=== PATIENT | male | born 1950 | race Caucasian/White ===

== ENCOUNTER 2019-09-13 11:16 | Emergency (ER) | payer OTHER ==
[2019-09-13 11:27] VITALS: BP 129/78
--- NOTE | 2019-09-13 11:56 | UC ---
Ear Complaint HPI - HPI Summary HPI Summary: 69 y/o male presents to the urgent care c/o RT ear pain and swelling for the past 5 days. Pt reports he wears hearing aids and feels was slightly difficult to removed 2 days ago due to probably swelling. Pain is 4/10 at times associated w/ decrease hearing. Pt denies URI, fever, dizziness, SOB, chest pain , ZUÑIGA,abdominal pain, N/V/D. He has not taken any medication to alleviate symptoms. - History of Current Complaint Chief Complaint: UCEar Stated Complaint: EAR ACHE Time Seen by Provider: 09/13/19 11:47 Hx Obtained From: Patient Onset/Duration: Gradual Onset, Lasting Days - 5 days, Still Present, Worse Since - last night Severity Initially: Mild Severity Currently: Mild Pain Intensity: 4 Pain Scale Used: 0-10 Numeric Aggravating Factors: Nothing Alleviating Factors: Nothing Associated Signs/Symptoms: Positive: Hearing Loss - RT ear - Allergies/Home Medications Allergies/Adverse Reactions: Allergies Allergy/AdvReac Type Severity Reaction Status Date / Time No Known Allergies Allergy Verified 09/13/19 11:27 PMH/Surg Hx/FS Hx/Imm Hx Previously Healthy: Yes Endocrine History: Dyslipidemia Cardiovascular History: Cardiac Disease, Hypertension - Surgical History Surgical History: Yes Surgery Procedure, Year, and Place: SKIN CANCER REMOVED FROM FACE 10 YEARS AGO. LEFT TOTAL HIP REPLACEMENT 2011 - Family History Known Family History: Positive: Cardiac Disease, Hypertension - Social History Occupation: Retired Lives: With Family Alcohol Use: Occasionally Alcohol Amount: BEER 2 X WEEK Substance Use Type: None Smoking Status (MU): Former Smoker When Did the Patient Quit Smoking/Using Tobacco: 43 YEARS AGO Review of Systems All Other Systems Reviewed And Are Negative: Yes Constitutional: Positive: Negative Skin: Positive: Negative Eyes: Positive: Negative ENT: Positive: Negative, Ear Ache - Rt ear pain ans swelling. Negative: Sore Throat, Nasal Discharge Respiratory: Positive: Negative Cardiovascular: Positive: Negative Gastrointestinal: Positive: Negative Genitourinary: Positive: Negative Motor: Positive: Negative Neurovascular: Positive: Negative Musculoskeletal: Positive: Negative Neurological: Positive: Negative Psychological: Positive: Negative Is Patient Immunocompromised?: No Physical Exam - Summary Physical Exam Summary: Vital signs: reviewed General: well developed, well nourished male sitting in the examining table w/o any apparent distress Skin: [place], warm and dry, no evidence of atopic dermatitis, psoriasis, seborrhea. HEENT: -Head: atraumatic, non tender; no scalp dermatitis. -Eyes: sclera and conjunctiva clear, PERRLA, EOMI -Ears: no pre- or postauricular lymphadenopathy or erythema; RT external ear canal clear, Rt TM injected w/ erythema and yellowish purulent drainage., LF external ear canal clear and LF TM WNL. TMs normal w/out bulging or retraction. Good light reflex. No fluid level, vesicles, or bullae. No perforation. -Nose/Face: erythematous and edematous nasal mucosa with clear rhinorrhea, no frontal or maxillary sinus tender to palpation. -Mouth/Throat: Mucous membrane moist, posterior pharynx clear, no erythema or exudates. Neck: supple, FROM, nontender, no lymphadenopathy, no meningismus. Chest: Clear to auscultation, normal breath sounds Abd: soft, Bowel sounds active, Nontender. Back: no spinal or CVAT Neuro: A&O x4, GCS 15, no focal neuro deficits, normal behavior for age. Triage Information Reviewed: Yes Vital Signs: Initial Vital Signs Temp 98.4 F 09/13/19 11:24 Pulse 54 09/13/19 11:24 Resp 12 09/13/19 11:24 BP 129/78 09/13/19 11:24 Pulse Ox 98 09/13/19 11:24 Ear Complaint Course/Dx - Course Course Of Treatment: 69 y/o male presents to the urgent care c/o RT ear pain and swelling for the past 5 days. Pt reports he wears hearing aids and feels was slightly difficult to removed 2 days ago due to probably swelling. Pain is 4/10 at times associated w/ decrease hearing. Pt denies URI, fever, dizziness, SOB, chest pain , ZUÑIGA,abdominal pain, N/V/D. He has not taken any medication to alleviate symptoms. Hx obtained. Pt with a Rt otitis media on examination. Pt Rx Amoxicillin PO as directed below. Advised to take ibuprofen PO OTC for pain. If symptoms do not improve or worsen to return to the urgent care or f/u with PCP for further management. Pt understood and agreed with D/C instructions. - Differential Dx/Diagnosis Differential Diagnosis/HQI/PQRI: Barotrauma, Cerumen Impaction, Otitis Externa, Otitis Media, Perforated TM, URI Provider Diagnosis: Right otitis media Discharge ED - Sign-Out/Discharge Documenting (check all that apply): Patient Departure - D/C home All imaging exams completed and their final reports reviewed: No Studies - Discharge Plan Condition: Stable Disposition: HOME Patient Education Materials: Ear Infection (ED) Referrals: Garry Rhoades MD [Primary Care Provider] - 3 Days Additional Instructions: 1- Please take the full course of the antibiotic to avoid resistance.Take yogurts w/ probiotics or Culturelle to protect your GI system. 2-Please take ibuprofen PO q6-8hrs prn as instructed after meals to alleviate pain and swelling. Increase fluid intake, eat well, rest and avoid strenuous exercise 3-If symptoms do not improve or worsen please return to the urgent care or f/u with your PCP for further evaluation and treatment. - Billing Disposition and Condition Condition: STABLE Disposition: Home
== END 2019-09-13 12:12 | disposition home or self-care (01) ==
LOC: UCEAST 11:16
DX: H66.91 Otitis media, unspecified, right ear (principal); I10 Essential (primary) hypertension; Z87.891 Personal history of nicotine dependence
CPT/HCPCS: 99212; G0463

== ENCOUNTER 2019-10-21 15:37 | Emergency (ER) | payer OTHER ==
[2019-10-21 15:50] VITALS: BP 130/82
--- NOTE | 2019-10-21 16:48 | UC ---
Ear Complaint HPI - HPI Summary HPI Summary: 69-year-old male comes in with chief complaint of decreased hearing in the left ear. He does have a history of chronic decreased hearing and does wear hearing aids. The hearing is been worse in the left ear and there is some pressure. Denies any pain. Denies any upper respiratory tract infection symptoms. No runny nose no sore throat no fevers or chills no known trauma. - History of Current Complaint Chief Complaint: UCEar Stated Complaint: EAR COMPLAINT Time Seen by Provider: 10/21/19 16:05 Pain Intensity: 0 - Allergies/Home Medications Allergies/Adverse Reactions: Allergies Allergy/AdvReac Type Severity Reaction Status Date / Time No Known Allergies Allergy Verified 10/21/19 15:50 PMH/Surg Hx/FS Hx/Imm Hx Previously Healthy: Yes - [place] Endocrine History: Diabetes, Dyslipidemia Cardiovascular History: Hypertension, Atrial Fibrillation GI/ History: Gastroesophageal Reflux - Surgical History Surgical History: Yes Surgery Procedure, Year, and Place: SKIN CANCER REMOVED FROM FACE 10 YEARS AGO. LEFT TOTAL HIP REPLACEMENT 2011 - Family History Known Family History: Positive: Cardiac Disease, Hypertension - Social History Alcohol Use: Occasionally Alcohol Amount: BEER 2 X WEEK Substance Use Type: None Smoking Status (MU): Former Smoker When Did the Patient Quit Smoking/Using Tobacco: 43 YEARS AGO Review of Systems All Other Systems Reviewed And Are Negative: Yes Constitutional: Positive: Negative Skin: Positive: Negative Eyes: Positive: Negative ENT: Positive: Ear Ache - SEE HPI Respiratory: Positive: Negative Cardiovascular: Positive: Negative Gastrointestinal: Positive: Negative Motor: Positive: Negative Neurovascular: Positive: Negative Musculoskeletal: Positive: Negative Neurological: Positive: Negative Psychological: Positive: Negative Is Patient Immunocompromised?: No Physical Exam Triage Information Reviewed: Yes Appearance: Well-Appearing, No Pain Distress, Well-Nourished Vital Signs: Initial Vital Signs Temp 97.6 F 10/21/19 15:49 Pulse 67 10/21/19 15:49 Resp 16 10/21/19 15:49 BP 130/82 10/21/19 15:49 Pulse Ox 99 10/21/19 15:49 Vital Signs Reviewed: Yes Eye Exam: Normal Eyes: Positive: Conjunctiva Clear ENT: Positive: Pharynx normal, Other - Left cerumen impaction. Right TM is normal. Both ear canals appear normal. Neck: Positive: Supple Respiratory: Positive: No respiratory distress Musculoskeletal: Positive: Strength Intact, ROM Intact Neurological: Positive: Alert Psychological: Positive: Age Appropriate Behavior Skin Exam: Normal Ear Complaint Course/Dx - Course Course Of Treatment: Left ear was irrigated by nursing and a piece of cotton apparently from a Q-tip came out and hearing is improved. Both TMs are normal on examination. No need for oral antibiotics at this time. I am prescribing topical antibiotics to be used if the left ear canal gets irritated. Patient should get reevaluated worse or any questions or concerns. - Differential Dx/Diagnosis Provider Diagnosis: Left ear hearing loss, Foreign body of ear, left Discharge ED - Sign-Out/Discharge Documenting (check all that apply): Patient Departure All imaging exams completed and their final reports reviewed: No Studies - Discharge Plan Condition: Stable Disposition: HOME Prescriptions: Ofloxacin 0.3% (Ear Drop)* [Floxin 0.3% OTIC.JOSIANE (Ear Drop)] 5 drop LEFT EAR BID #1 btl Patient Education Materials: Ear Foreign Body (ED) Referrals: Garry Rhoades MD [Primary Care Provider] - Additional Instructions: FOLLOW UP WITH YOUR DOCTOR IF NOT COMPLETELY IMPROVED. GET REEVALUATED SOONER IF NOT IMPROVED OR WORSE OR ANY QUESTIONS OR CONCERNS. - Billing Disposition and Condition Condition: STABLE Disposition: Home
== END 2019-10-21 17:15 | disposition home or self-care (01) ==
LOC: UCEAST 15:37
DX: H91.92 Unspecified hearing loss, left ear (principal); H61.22 Impacted cerumen, left ear; T16.2XXA Foreign body in left ear, initial encounter; X58.XXXA Exposure to other specified factors, initial encounter; Y92.9 Unspecified place or not applicable; E11.9 Type 2 diabetes mellitus without complications; I10 Essential (primary) hypertension; Z96.642 Presence of left artificial hip joint; Z87.891 Personal history of nicotine dependence
CPT/HCPCS: 99212; G0463